=== PATIENT | female | born 1950 | race African-American/Black ===

== ENCOUNTER → 2016-05-16 18:51 | Outpatient (CLI) | payer MEDICARE ==
[2015-08-03 13:51] VITALS: BMI 44.5
[~2016-05-16 18:51] MED LIST: ASMANEX0.24 GM INH; ASPIRIN EC81 MG PO; BENADRYL A12.5 MG/5 PO; BENADRYL INJ50 MG/ML IV; BOUDREAUXS113 GM TP; COLACE100 MG PO; COUMADIN5 MG PO; DIOVAN80 MG PO; DULCOLAX10 MG/SUPP RC; DUONEB 2.5-0.5 M3 ML UPD; EFFIENT10 MG PO; FLOVENT HFA 410.6 GM INH; GLIMEPIRIDE1 MG PO; GLUCOPHAGE500 MG PO; HCTZ25 MG PO; K-TAB10 MEQ PO; MEVACOR20 MG PO; MIRALAX17 GM PO; MORPHINE P30 MG/30 M IV; MULTIPLE VITAMI1 TA1 PO; NORVASC5 MG PO; ONDANSETRON4 MG/2 M3 IV; OXYCODONE HCL5 MG PO; PROTONIX40 MG PO; PROVENTIL HFA6.7 GM INH; SENOKOT-S TABLE1 TAB PO; SINGULAIR10 MG PO; SODIUM CL 0.91000 ML IV; TORADOL30 MG/ML IM; TYLENOL325 MG PO; VESICARE5 MG PO; VITAMIN D31000 UNIT PO; ZOFRAN4 MG PO
== END | disposition home or self-care (01) ==
LOC: D.LABREF 18:51
DX: M17.11 Unilateral primary osteoarthritis, right knee (principal); Z11.8 Encounter for screening for other infectious and parasitic diseases

== ENCOUNTER 2016-07-12 09:00 | Inpatient (IN) | payer MEDICARE ==
[~2016-07-12] VITALS: Ht 167.6 cm; Wt 120.5 kg
[2016-07-12 08:19] LABS: BASOPHILS 0.1 % (0-2); EOSINOPHILS 2.1 % (0-7); HEMATOCRIT 37.3 % (36.0-48.0); HEMOGLOBIN 11.9 g/dL (12-16); IMMATURE GRANULOCYTES 0.2 % (0-5); LYMPHOCYTES 22.6 % (15-50); MCH 28.5 pg (26.0-34.0); MCHC 31.9 g/dL (31.0-37.0); MCV 89.2 fL (80.0-100.0); MEAN PLATELET VOLUME 9.7 fL (7.4-10.4); MONOCYTES 10.3 % (2-11); NEUTROPHILS 64.7 % (40-80); PLATELET COUNT 245 10x3/uL (130-400); RBC 4.18 10x6/uL (4.00-5.40); RDW 15.3 % (11.5-14.5); WBC 9.9 10x3/uL (4.8-10.8)
[2016-07-12 08:36] LABS: APTT 27.6 SECONDS (22.8-39.4); INR 0.95 (0.85-1.17); PROTIME 12.5 SECONDS (11.6-15.0)
[2016-07-12 08:45] LABS: ANION GAP 9.4 mmol/L (8-16); CALCIUM 9.4 mg/dL (8.5-10.1); CARBON DIOXIDE 30.5 mmol/L (21.0-32.0); CREATININE - SERUM 1.4 mg/dL (0.6-1.3); POTASSIUM - SERUM 3.9 mmol/L (3.5-5.1)
[~2016-07-12 09:00] MED LIST changes: +GLIPIZIDE10 MG PO; +VESICARE10 MG PO; -VESICARE5 MG PO
[2016-07-12 09:43] LABS: APPEARANCE HAZY (CLEAR); BILIRUBIN NEGATIVE (NEGATIVE); COLOR YELLOW (YELLOW); GLUCOSE NEGATIVE (NEGATIVE); KETONE NEGATIVE (NEGATIVE); LEUKOCYTE ESTERASE NEGATIVE (NEGATIVE); NITRITE NEGATIVE (NEGATIVE); PROTEIN NEGATIVE (NEGATIVE); SPECIFIC GRAVITY 1.005 (1.005-1.020); UROBILINOGEN NORMAL (NORMAL)
[2016-07-16] VITALS (11 sets, daily range): BP systolic 120–163; BP diastolic 48–81; Ht 167.6 cm; Wt 120.5 kg
--- NOTE | 2016-07-16 12:05 | NUR ---
PT RUNNING SINUS TACH DUE TO ROBINOL DURING SURGERY. TRENDING DOWN.
--- NOTE | 2016-07-16 12:25 | NUR ---
PATIENT RECEIVED TO FLOOR FROM PACU VIA BED. PATIENT RESTING WITH EYES CLOSED. WAKES EASY. VITAL SIGNS STABLE. DRESSING TO RIGHT KNEE CLEAN, DRY AND INTACT. PREVENA DRESSING INTACT. ORIENTED TO ROOM. SIDE RAILS UP X2. BED IN LOW POSITION. YELLOW FALL RISK BAND PLACED ON PATIENT. BED ALARM ON. INSTRUCTED PATIENT SHE WOULD BE ON BEDREST TODAY. STATES UNDERSTANDING. DENIES PAIN.
--- NOTE | 2016-07-16 13:20 | NUR ---
SCD PLACED ON PATIENT BILATERALLY. INCENTIVE SPIROMETER AND TEACHING PROVIDED. STATES UNDERESTANDING.
--- NOTE | 2016-07-16 14:25 | NUR ---
PATIENT IN MID RIGGS POSITION RESTING WITH EYES CLOSED. RESPIRATIONS EVEN AND UNLABORED. WAKES EASY. GUEST AT BEDSIDE. SIDE RAILS UP X2. BED IN LOW POSITION. CALL LIGHT IN REACH. BED ALARM ON.
--- NOTE | 2016-07-16 15:11 | NUR ---
* Is the patient Alert and Oriented? Yes 0 * How many steps to enter\exit or inside your home? 2 0 * PCP P[facility]RA 0 * [facility] [place] 0 * Preadmission Environment Home Alone 0 * ADLs Independent 0 * Equipment Walker 0 * List name and contact numbers for known caregivers / representatives who currently or will assist patient after discharge: LIVES ALONE BUT HAS A DAUGHTER WHO WILL HELP SARA ARCE ([phone]) RN EMERGENCY HOME 0 * Community resources currently utilized None 0 * Additional services required to return to the preadmission environment? Yes 0 * Can the patient safely return to the preadmission environment? Yes 0 * Has this patient been hospitalized within the prior 30 days at any hospital? No 0 Grand Total: 0 Patient Name: IRIS SETHI Admission Status: Elective Accout number: [id number] Admission Date: 07-16-2016 : 1950 Admission Diagnosis: Attending: RESHMA Current LOS: 1 Anticipated DC Date: 07-18-2016 Planned Disposition: Home Primary Insurance: [employer] ADV Discharge Planning Comments: CM met with patient to assess discharge planning/needs. Patient states that she plans to return home where she lives alone. She states that she has 2 steps to enter her home and her home is a safe environment to return too. Her friend Sara Arce ([phone]) will be driving her home & her daughter who is a nurse will be there to help her. She has a potty chair and a walker at home & is schedule to have a CPM delivered from [facility]. CM will set up OP PT at [facility]. CM will continue to follow and assist discharge planning needs. PCP: [facility] [place] Assistant Grocery Store Manager: Sara Arce [phone] [place] Flaker: Inga Garcia
--- NOTE | 2016-07-16 16:05 | NUR ---
ALERT IN BED WATCHING TV. NO SIGNS OF DISTRESS NOTED. SCHEDULED MEDICATION ADMINISTERED. DENIES PAIN AND OTHER NEEDS. SIDE RAILS UP X2. BED IN LOW POSITION. CALL LIGHT IN REACH. BED ALARM ON.
--- NOTE | 2016-07-16 22:14 | NUR ---
PT RESTING IN BED. NO SIGNS OF DISTRESS NOTED. CPM REMOVED. SCHEDULED MEDS GIVEN. SHIFT ASSESSMENT COMPLETED. ASSISTED WITH BEDPAN. DENIES ANY NEEDS AT THIS TIME. BED LOW. CALL LIGHT IN REACH
[2016-07-17 05:02] LABS: HEMATOCRIT 32.8 % (36.0-48.0); HEMOGLOBIN 10.2 g/dL (12-16); MCH 27.9 pg (26.0-34.0); MCHC 31.1 g/dL (31.0-37.0); MCV 89.6 fL (80.0-100.0); MEAN PLATELET VOLUME 10.1 fL (7.4-10.4); RBC 3.66 10x6/uL (4.00-5.40); RDW 15.2 % (11.5-14.5); WBC 9.4 10x3/uL (4.8-10.8)
--- NOTE | 2016-07-17 07:25 | NUR ---
PATIENT RECEIVED ALERT IN MID RIGGS POSITION. RESPIRATIONS EVEN AND UNLABORED. DENIES NEEDS AND PAIN. CPM IN PLACE. TOLERATING WELL. SIDE RAILS UP X2. BED IN LOW POSITION. CALL LIGHT IN REACH.
--- NOTE | 2016-07-17 08:38 | NUR ---
PATIENT ALERT IN BED. NO SIGNS OF DISTRESS NOTED. SCHEDULED MEDICATION ADMINISTERED. DENIES NEEDS. SIDE RAILS UP X2. BED IN LOW POSITION. CALL LIGHT IN REACH. BED ALARM ON.
[2016-07-17 09:03] VITALS: BP 140/62
--- NOTE | 2016-07-17 10:02 | NUR ---
SITTING UP IN CHAIR ALERT VISITING WITH GUESTS. NORCO PER PRN ORDER FOR PAIN 04/20. DENIES NEEDS. CALL LIGHT IN REACH.
--- NOTE | 2016-07-17 11:52 | NUR ---
ICE PACK PLACED TO RIGHT KNEE
[2016-07-17 12:39] VITALS: BP 137/42
--- NOTE | 2016-07-17 13:35 | NUR ---
ALERT IN BED. C/O PAIN 05/21. 1 TAB PERCOCET ADMINISTERED PER PRN ORDER. DENIES FURTHER NEEDS. SIDE RAILS UP X2. BED IN LOW POSITION. CALL LIGHT IN REACH. BED ALARM ON.
--- NOTE | 2016-07-17 14:15 | NUR ---
PATIENT RESTING QUIETLY IN BED WITH EYES CLOSED. NO SIGNS OF DISTRESS NOTED. SIDE RAILS UP X2. BED IN LOW POSITION. CALL LIGHT IN REACH.
[2016-07-17 16:46] VITALS: BP 145/43
--- NOTE | 2016-07-17 16:48 | NUR ---
ALERT IN BED. C/O PAIN 07/21. 1 TAB NORCO PER PRN ORDER. NO FURTHER NEEDS VOICED. SIDE RAILS UP X2. BED IN LOW POSITION. CALL LIGHT IN REACH.
--- NOTE | 2016-07-17 18:10 | NUR ---
CPM TO RIGHT LEG. ICE PACK IN PLACE. RATES PAIN /10. SIDE RAILS UP X3. BED IN LOW POSITION. CALL LIGHT IN REACH.
[2016-07-17 20:00] VITALS: BP 138/81
--- NOTE | 2016-07-17 21:55 | NUR ---
CPM REMOVED. ASSISTED WITH BEDPAN, LINEN CHANGE, AND REPOSITIONING. SCHEDULED MEDS GIVEN. SHIFT ASSESSMENT COMPLETED. NO NEEDS VOICED AT THIS TIME. BED LOW. CALL LIGHT IN REACH. BED ALARM ON.
[2016-07-18 04:00] VITALS: BP 185/76
[2016-07-18 06:45] LABS: HEMATOCRIT 32.5 % (36.0-48.0); HEMOGLOBIN 10.2 g/dL (12-16); MCH 27.9 pg (26.0-34.0); MCHC 31.4 g/dL (31.0-37.0); MCV 88.8 fL (80.0-100.0); MEAN PLATELET VOLUME 10.3 fL (7.4-10.4); RBC 3.66 10x6/uL (4.00-5.40); RDW 15.2 % (11.5-14.5); WBC 11.5 10x3/uL (4.8-10.8)
--- NOTE | 2016-07-18 07:15 | NUR ---
PT REC'D FROM [facility]. RESTING IN BED WITH CPM TO R LEG AT 45 DEGREES. RATING CURRENT PAIN IN R LEG 03/23. DRESSING TO R KNEE CDI. WOUND VAC CURRENT PULLING NO DRAINAGE. BED LOW, CALL LIGHT IN REACH, DENIES NEEDS. CPOC.
--- NOTE | 2016-07-18 08:33 | NUR ---
CPM TAKEN OFF AT THIS TIME. PT EATING BREAKFAST AT THIS TIME. BED LOW, CALL LIGHT IN REACH, DENIES NEEDS. CPOC.
[2016-07-18 08:59] VITALS: BP 176/74
[2016-07-18 13:22] VITALS: BP 180/74
[2016-07-18 16:29] VITALS: BP 181/67
[2016-07-18 20:00] VITALS: BP 180/75
[2016-07-19] VITALS: BP 178/76
[2016-07-19 04:00] VITALS: BP 172/70
--- NOTE | 2016-07-19 07:00 | NUR ---
PT REC'D FROM [facility]. RESTING IN BED WATCHING TV. AAOX4. NO CURRENT COMPLAINTS OF PAIN. DRESSING TO R KNEE CDI. +2 PEDAL PULSES BILAT. BRISK CAP REFILL. BED LOW, CALL LIGHT IN REACH, DENIES NEEDS. CPOC.
[2016-07-19] MEDS ORDERED: ELIQUIS2.5 MG PO (07:57)
[2016-07-19] MEDS ORDERED: PERCOCET 10/3251 TA1 PO (07:58)
[2016-07-19 08:08] VITALS: BP 157/63
--- NOTE | 2016-07-19 08:18 | NUR ---
PATIENT IS RESTING IN BED AND WATCHING T.V. PATIENT IS AWAKE, ALERT, AND ORIENTED X4. PATIENT DENIES ANY PAIN OR NAUSEA AT PRESENT TIME. PATIENT STATES THAT DR. WEBB JUST CAME BY AND THAT SHE GETS TO GO HOME TO [place] THIS AFTERNOON. SALINE LOCK PATENT IN PATIENT'S LEFT FOREARM WITHOUT ANY S/S OF INFECTION NOTED. SHRADDHA WRAP NOTED AND INTACT TO PATIENT'S RIGHT KNEEE/LOWER EXTREMITY. WOUND VAC IN PLACE TO RIGHT KNEE/LEG INCISION. SLIGHT SWELLING NOTED TO PATIENT'S RIGHT LOWER EXTREMITY. SCD NOTED TO PATIENT'S LEFT LOWER EXTREMITY. PATIENT DENIES ANY NEEDS AT PRESENT TIME. PATIENT STATES SHE IS JUST WAITING ON HER BREAKFAST TRAY. CALL LIGHT IN PATIENT'S REACH. WILL MONITOR PATIENT.
--- NOTE | 2016-07-19 14:07 | NUR ---
DC INSTRUCTIONS AND FOLLOW UP APPOINTMENTS DISCUSSED AT THIS TIME. NO QUESTIONS OR CONCERNS VOICED AT THIS TIME. IV TO L FOREARM DC'D WITH CATHETER INTACT. PRESSURE AND DRESSING APPLIED. ESCORTED OUT VIA WC.
== END 2016-07-19 14:10 | disposition home or self-care (01) | DRG 470 ==
LOC: D.SDCHOLD 07-16 09:00 → D.MS 07-16 12:31
PROVIDERS: ADMIT Orthopaedic Surgery
PROC: 0SRC0JZ Replacement of Right Knee Joint with Synthetic Substitute, Open Approach (ICD-10-PCS; principal; 2016-07-16 09:15)
DX: M17.11 Unilateral primary osteoarthritis, right knee (principal); Z68.41 Body mass index [BMI] 40.0-44.9, adult; I10 Essential (primary) hypertension; E11.9 Type 2 diabetes mellitus without complications; J45.909 Unspecified asthma, uncomplicated; I25.10 Atherosclerotic heart disease of native coronary artery without angina pectoris; E66.01 Morbid (severe) obesity due to excess calories